=== PATIENT | female | born 1990 | race Caucasian/White ===

== ENCOUNTER 2017-06-16 08:40 | Emergency (ER) | payer OTHER ==
[~2017-06-16 08:40] MED LIST: COREG PO; DEPOPROVERA SHOT; FLAGYL PO; GABAPENTIN300 MG PO; HYDROCODON-ACE1 EAC7 PO; KEFLEX; NEURONTIN600 MG PO; PROTONIX PO; PYRIDIUM100 MG; TYLENOL325 M1 PO; ZOFRAN PO
[2017-06-16] MEDS ORDERED: ZOFRAN (08:53)
[2017-06-16] MEDS ORDERED: COREG (08:53)
[2017-06-16] MEDS ORDERED: CHANTIX (08:53)
[2017-06-16] MEDS ORDERED: VISTARIL PO (08:54)
[2017-06-16 09:34] LABS: URINE SOURCE CLEAN CATCH
[2017-06-16 09:38] LABS: URINE APPEARANCE CLEAR; URINE BILIRUBIN NEG (NEG); URINE BLOOD NEG (NEG); URINE COLOR YELLOW; URINE GLUCOSE NEG (NORM); URINE KETONE NEG (NEG); URINE LEUKOCYTE ESTERASE NEG (NEG); URINE NITRATE NEG (NEG); URINE PROTEIN NEG (NEG); URINE SPECIFIC GRAVITY <=1.005 (1.003-1.035); URINE UROBILINOGEN 0.2 MG/DL (NORM)
[2017-06-16 09:44] LABS: MICRO INDICATED? NO
[2017-06-16 10:05] LABS: CALCIUM SERUM 9.2 mg/dL (8.4-10.2); GLOM FILT RATE Estimated 77.2 mL/min (>60)
== END 2017-06-16 10:12 | disposition left against medical advice (07) ==
LOC: SED 08:40
PROVIDERS: Emergency Medicine
DX: K29.00 Acute gastritis without bleeding (principal); F41.9 Anxiety disorder, unspecified; F17.200 Nicotine dependence, unspecified, uncomplicated; Z88.8 Allergy status to other drugs, medicaments and biological substances; Z79.899 Other long term (current) drug therapy
CPT/HCPCS: 36415; 80048; 81003; 84703; 99284; J2765